=== PATIENT | male | born 1995 | race Caucasian/White ===

== ENCOUNTER → 2017-02-15 | Outpatient (CLI) | payer OTHER ==
[~2017-02-15] MED LIST: INSPMPNVLG; LISI-725 PO
[2017-02-15 12:57] LABS: ALT/SGPT 19 U/L (12-78); BLOOD UREA NITROGEN 8 mg/dl (7-18); BUN/CREATININE RATIO 9.5 (10-20); CARBON DIOXIDE 26 mmol/L (21-32); CHLORIDE 103 mmol/L (98-107); CHOLESTEROL 148 mg/dl (0-200); CREATININE 0.83 mg/dl (0.60-1.40); GLUCOSE 159 mg/dl (70-99); POTASSIUM 3.5 mmol/L (3.5-5.1); SODIUM 141 mmol/L (136-145); TRIGLYCERIDES 90 mg/dl (0-150); VERY LOW DENSITY LIPOPROT CALC 18 mg/dl
[2017-02-15 13:07] LABS: ALB/GLOB RATIO 1.1 (0.9-2); ALKALINE PHOSPHATASE 65 U/L (45-117); AST/SGOT 12 U/L (15-37); CHOLESTEROL/HDL RATIO 2.5; HDL CHOLESTEROL 59 mg/dl; LDL CHOLESTEROL CALCULATED 71 mg/dl
[2017-02-15 13:16] LABS: ESTIMATED AVERAGE GLUCOSE 269 mg/dl; HA1C FLAG Normal (Normal)
[2017-02-15 13:34] LABS: RATIO 733.3 mcg/mg (0-30.0)
== END | disposition home or self-care (01) ==
LOC: C.LABBFT 09:56
PROVIDERS: ATTEND Internal Medicine Endocrinology, Diabetes & Metabolism
DX: R80.9 Proteinuria, unspecified (principal); E10.21 Type 1 diabetes mellitus with diabetic nephropathy

== ENCOUNTER 2017-05-05 22:10 | Emergency (ER) | payer OTHER ==
[~2017-05-05] VITALS: Ht 179.1 cm; Wt 70.0 kg
[2017-05-05 22:12] VITALS: Ht 179.1 cm; Wt 70.0 kg
[2017-05-05] MEDS ORDERED: SODIUM CHLORIDE 0.9% 1000ML 2,000 ML IV STA (22:23)
[2017-05-05] MEDS ORDERED: KETOROLAC TROMETHAMINE 30 MG/ML VIAL IV STA (22:23)
--- NOTE | 2017-05-05 23:03 | DIAGNOSTIC IMAGING REPORT ---
CHEST ONE VIEW PORTABLE CLINICAL HISTORY: Sepsis. COMPARISON STUDY: Chest radiograph November 05, 2015. FINDINGS: Lung volumes are normal. There is no pneumothorax or pleural effusion. There is no consolidation. Cardiac size is normal. Mediastinal contours are normal. Pulmonary vascularity is normal. IMPRESSION: No acute cardiopulmonary findings. Electronically signed by: Blayne Gabriel M.D. 05/05/2017 11:02 PM Dictated Date/Time: 05/05/2017 11:01 PM
[2017-05-05 23:09] LABS: MANUAL MICROSCOPIC REQUIRED? NO; REVIEW REQ? NO; URINE APPEARANCE CLEAR (CLEAR); URINE COLOR DK YELLOW; URINE NITRITE NEG (NEG); URINE PH 5.5 (4.5-7.5); URINE SPECIFIC GRAVITY 1.033 (1.000-1.030); UROBILINOGEN NEG (NEG); ZZUR CULT IF INDIC CLEAN CATCH NO
[2017-05-05 23:10] LABS: URINE BILIRUBIN NEG (NEG)
[2017-05-05 23:12] LABS: BASO % 0.3 %; BASO ABS # 0.03 K/uL (0-0.2); COMPLETE YES; HEMATOCRIT 45.8 % (42-52); IG% 0.3 %; LYMPH ABS # 1.28 K/uL (1.2-3.4); MEAN CELL VOLUME 84.7 fL (80-100); MEAN CORPUSCULAR HEMOGLOBIN 29.2 pg (25-34); MEAN CORPUSCULAR HGB CONC 34.5 g/dl (32-36); MONO % 12.1 %; NEUT % 76.3 %; PLATELET COUNT 224 K/uL (130-400); RED BLOOD COUNT 5.41 M/uL (4.7-6.1); WHITE BLOOD COUNT 11.61 K/uL (4.8-10.8)
[2017-05-05 23:14] LABS: INR 1.1 (0.9-1.1); PARTIAL THROMBOPLASTIN RATIO 1.3; PROTHROMBIN TIME (PATIENT) 11.4 SECONDS (9.0-12.0)
[2017-05-05 23:24] LABS: BUN/CREATININE RATIO 11.5 (10-20); CALCIUM 9.1 mg/dl (8.5-10.1); CREATININE 1.1 mg/dl (0.60-1.40); POTASSIUM 3.6 mmol/L (3.5-5.1)
[2017-05-05 23:27] LABS: ALB/GLOB RATIO 0.8 (0.9-2)
[2017-05-05 23:37] VITALS: TEMP 37
[2017-05-06 00:04] LABS: LYME DISEASE AB IGG NEG (NEG); LYME DISEASE AB IGM NEG (NEG)
[2017-05-06 00:50] VITALS: BP 109/61; PULSE 78; O2SAT 98
--- NOTE | 2017-05-06 02:23 | EMERGENCY ROOM VISIT NOTE ---
History First contact with patient: 22:19 Chief Complaint: FEVER Stated Complaint: FEVER SORE THROAT ACHEY,HEADACHE History of Present Illness The patient is a 21 year old male who presents to the Emergency Room with complaints of sore throat, fever, chills, myalgias, arthralgias, occasional cough for the past 2 days. Little sister is sick with btqe-lggj-hqz-mouth disease. Blood sugars have been running about 100. He is a type I diabetic. Patient denies chest pain, dyspnea, abdominal pain, vomiting, diarrhea, neck stiffness. He is tolerating by mouth fluids and food. Review of Systems See HPI for pertinent positives & negatives. A total of 10 systems reviewed and were otherwise negative. Past Medical/Surgical History Medical Problems: (1) Diabetes (2) DKA (diabetic ketoacidoses) Social History Smoking Status: Never Smoker Alcohol Use: none Drug Use: none Occupation Status: employed Current/Historical Medications Scheduled Insulin Aspart (novoLOG INSULIN PUMP ), 33 UNITS N/A UD Lisinopril (Zestril), 20 MG PO DAILY Allergies Coded Allergies: No Known Allergies (Verified , 05/05/17) Physical Exam Vital Signs Date Time Temp Pulse Resp B/P (MAP) Pulse Ox O2 Delivery O2 Flow Rate FiO2 05/06/17 00:50 78 20 109/61 98 05/05/17 23:37 37.0 89 16 110/79 97 Room Air 05/05/17 22:12 38.1 124 18 154/87 97 Room Air Pain Rating (0-10): 2.0 Physical Exam VITALS: Vitals are noted on the nurse's note and reviewed by myself. Vital signs febrile GENERAL: Pleasant male, in no acute distress, nondiaphoretic, well-developed well-nourished. SKIN: The skin was without rashes, erythema, edema, or bruising. There is no tenting of the skin. Capillary reflex less than 2 seconds. HEAD: Normocephalic atraumatic. EARS: External auditory canals clear, tympanic membranes pearly alejandra without erythema or effusion bilaterally. EYES: Pupils equal round and reactive to light and accommodation. Conjunctivae without injection, sclerae without icterus. Extraocular movements intact. NOSE: Patent, turbinates without inflammation or discharge. No sinus tenderness. MOUTH: Mucous membranes mildly dry. Pharynx without erythema or exudate. Uvula midline. Airway patent. Tongue does not deviate. NECK: Supple without nuchal rigidity. No lymphadenopathy. No thyromegaly. Cervical spine is nontender. No JVD. No meningeal signs HEART: Regular rate and rhythm without murmurs gallops or rubs. LUNGS: Clear to auscultation bilaterally without wheezes, rales or rhonchi. No dullness to percussion. No retractions or accessory muscle use. ABDOMEN: Positive bowel sounds x 4. Normal tympanic percussion. Soft, nontender, without masses or organomegaly. Yi sign negative. No guarding or rebound tenderness. No CVA tenderness MUSCULOSKELETAL: No muscle atrophy, erythema, or edema noted. NEURO: Patient was alert and oriented to person place and time. Normal sensation to light and sharp touch. No focal neurological deficits. Medical Decision & Procedures Laboratory Results 05/05/17 22:40 Red Blood Count 5.41, Mean Corpuscular Volume 84.7, Mean Corpuscular Hemoglobin 29.2, Mean Corpuscular Hemoglobin Concent 34.5, Mean Platelet Volume 11.0, Neutrophils (%) (Auto) 76.3, Lymphocytes (%) (Auto) 11.0, Monocytes (%) (Auto) 12.1, Eosinophils (%) (Auto) 0.0, Basophils (%) (Auto) 0.3, Neutrophils # (Auto ) 8.85, Lymphocytes # (Auto) 1.28, Monocytes # (Auto) 1.41, Eosinophils # (Auto ) 0.00, Basophils # (Auto) 0.03 05/05/17 22:40 Test 05/05/17 22:40 05/05/17 22:55 White Blood Count 11.61 K/uL (4.8-10.8) Red Blood Count 5.41 M/uL (4.7-6.1) Hemoglobin 15.8 g/dL (14.0-18.0) Hematocrit 45.8 % (42-52) Mean Corpuscular Volume 84.7 fL (80-100) Mean Corpuscular Hemoglobin 29.2 pg (25-34) Mean Corpuscular Hemoglobin Concent 34.5 g/dl (32-36) Platelet Count 224 K/uL (130-400) Mean Platelet Volume 11.0 fL (7.4-10.4) Neutrophils (%) (Auto) 76.3 % Lymphocytes (%) (Auto) 11.0 % Monocytes (%) (Auto) 12.1 % Eosinophils (%) (Auto) 0.0 % Basophils (%) (Auto) 0.3 % Neutrophils # (Auto) 8.85 K/uL (1.4-6.5) Lymphocytes # (Auto) 1.28 K/uL (1.2-3.4) Monocytes # (Auto) 1.41 K/uL (0.11-0.59) Eosinophils # (Auto) 0.00 K/uL (0-0.5) Basophils # (Auto) 0.03 K/uL (0-0.2) RDW Standard Deviation 37.6 fL (36.4-46.3) RDW Coefficient of Variation 12.3 % (11.5-14.5) Immature Granulocyte % (Auto) 0.3 % Immature Granulocyte # (Auto) 0.04 K/uL (0.00-0.02) Prothrombin Time 11.4 SECONDS (9.0-12.0) Prothromb Time International Ratio 1.1 (0.9-1.1) Activated Partial Thromboplast Time 35.0 SECONDS (21.0-31.0) Partial Thromboplastin Ratio 1.3 Anion Gap 10.0 mmol/L (3-11) Est Creatinine Clear Calc Drug Dose 104.3 ml/min Estimated GFR () 109.9 Estimated GFR (Non- 94.8 BUN/Creatinine Ratio 11.5 (10-20) Calcium Level 9.1 mg/dl (8.5-10.1) Total Bilirubin 0.6 mg/dl (0.2-1) Aspartate Amino Transf (AST/SGOT) 12 U/L (15-37) Alanine Aminotransferase (ALT/SGPT) 15 U/L (12-78) Alkaline Phosphatase 69 U/L (45-117) Total Protein 8.0 gm/dl (6.4-8.2) Albumin 3.6 gm/dl (3.4-5.0) Globulin 4.4 gm/dl (2.5-4.0) Albumin/Globulin Ratio 0.8 (0.9-2) Lyme Disease IgG Antibody NEG (NEG) Lyme Disease IgM Antibody NEG (NEG) Urine Color DK YELLOW Urine Appearance CLEAR (CLEAR) Urine pH 5.5 (4.5-7.5) Urine Specific [place] 1.033 (1.000-1.030) Urine Protein 3+ (NEG) Urine Glucose (UA) 1+ (NEG) Urine Ketones 3+ (NEG) Urine Occult Blood 1+ (NEG) Urine Nitrite NEG (NEG) Urine Bilirubin NEG (NEG) Urine Urobilinogen NEG (NEG) Urine Leukocyte Esterase NEG (NEG) Urine WBC (Auto) 1-5 /hpf (0-5) Urine RBC (Auto) 5-10 /hpf (0-4) Urine Hyaline Casts (Auto) 10-30 /lpf (0-5) Urine Epithelial Cells (Auto) 10-20 /lpf (0-5) Urine Bacteria (Auto) NEG (NEG) Medications Administered Medications (Trade) Dose Ordered Sig/Varinder Route Start Time Stop Time Status Last Admin Dose Admin Sodium Chloride 2,000 ml @ 999 mls/hr Q2H1M STAT IV 05/05/17 22:23 05/06/17 00:23 DC 05/05/17 22:54 999 MLS/HR Ketorolac Tromethamine (Toradol Inj) 30 mg NOW STAT IV 05/05/17 22:23 05/05/17 22:26 DC 05/05/17 22:54 30 MG ED Course Prior records/ancillary studies reviewed. Triage Nursing notes reviewed. Additional history obtained from family The patient's history was concerning for fever. Differential diagnosis: Etiologies such as viral syndrome, otitis, pharyngitis, pneumonia, influenza, meningitis, urinary tract infection, sepsis, bacteremia, as well as others were entertained. Physical examination: Patient is alert, interactive and tolerating fluids ER treatment provided: IV fluids, Toradol On reassessment the patient felt better. Diagnostics interpreted by me: The labs revealed hyperglycemia without DKA. Negative strep test. Negative Lyme's Imaging studies: CHEST ONE VIEW PORTABLE CLINICAL HISTORY: Sepsis. COMPARISON STUDY: Chest radiograph November 05, 2015. FINDINGS: Lung volumes are normal. There is no pneumothorax or pleural effusion. There is no consolidation. Cardiac size is normal. Mediastinal contours are normal. Pulmonary vascularity is normal. IMPRESSION: No acute cardiopulmonary findings. Electronically signed by: Blayne Gabriel M.D. This appears to be consistent with fever and sore throat most likely viral in etiology. Patient no signs of airway compromise. He is well-appearing. Urine culture was placed for mild hematuria. He was asymptomatic. Patient felt much better after being hydrated as above. No signs of meningitis. He did not have acute abdomen on exam. He is advised take all medicines as directed and to follow-up family care in a few days or here in the ER sooner for high fevers, lethargy, neck stiffness, worsening signs or symptoms or as needed. By the evaluation outlined above emergent etiologies such as otitis, pharyngitis, pneumonia, meningitis, urinary tract infection, sepsis, bacteremia, as well as others were deemed relatively unlikely. The pt informed about the findings as listed above. All questions were answered and pleased with the treatment. Return instructions were outlined and the patient was discharged in stable condition. Case reviewed with my attending Referral: The patient was referred back to their primary care physician for follow-up in 2 to 3 days for a recheck of the current condition. Medical Decision As above Impression Primary Impression: Fever Additional Impressions: Pharyngitis Dehydration Departure Information Dispostion Home / Self-Care Condition GOOD Forms HOME CARE DOCUMENTATION FORM, Work Instructions, Return To Work: 3 days IMPORTANT VISIT INFORMATION Patient Instructions Fever - [facility], Sore Throat - [facility], My [facility] Additional Instructions Acetaminophen(Tylenol) may be used for fever or pain. Use 1000mg every six hours as needed. Avoid using more than 4000mg in a 24 hour period. (AND/OR) Ibuprofen(Motrin, Advil) may be used for fever or pain. Use 600mg every six hours as needed. Take with food. Avoid using more than 2400mg in a 24 hour period. Do not use 2400mg per day for more than three consecutive days without physician direction. Prolonged inappropriate use can lead to stomach upset or ulcers. Afrin nasal spray: 2-3 sprays to each nostril twice daily as needed for congestion. Do not use for more than 3-4 days because it can lead to worsening rebound congestion. Pseudoephedrine(Sudaphed): 30-60mg every 6 hours as needed for nasal congestion. Do not take this with other stimulant products or supplements. Rest and drink plenty of fluids. Controlling your fever with Tylenol and Ibuprofen as above will make you feel better. Wash your hands after nose blowing, sneezing, or coughing. Most germs are spread through contact, therefore improper hygiene may result in your close contacts and loved ones becoming ill just like you. Continue current medications. Return to the ER for severe headache, neck stiffness, chest pain, difficulty breathing, fevers, vomiting, worsening of your condition, or as needed. Follow up with your primary physician this week for a recheck of your current condition. Work Instructions Return To Work: 3 days Problem Qualifiers Primary Impression: Fever Fever type: unspecified Qualified Codes: R50.9 - Fever, unspecified Additional Impressions: Pharyngitis Pharyngitis/tonsillitis etiology: unspecified etiology Qualified Codes: J02.9 - Acute pharyngitis, unspecified
== END 2017-05-06 00:51 | disposition home or self-care (01) ==
LOC: C.EDB 22:10
DX: R50.9 Fever, unspecified (principal); J02.9 Acute pharyngitis, unspecified; E86.0 Dehydration; R51 Headache; E10.9 Type 1 diabetes mellitus without complications; Z79.899 Other long term (current) drug therapy

== ENCOUNTER → 2017-05-30 | Outpatient (CLI) | payer OTHER ==
[2017-05-30 15:42] LABS: ESTIMATED AVERAGE GLUCOSE 206 mg/dl; HA1C FLAG Normal (Normal)
== END | disposition home or self-care (01) ==
LOC: C.LAB1850 14:14
PROVIDERS: ATTEND Internal Medicine Endocrinology, Diabetes & Metabolism
DX: R53.83 Other fatigue (principal); R80.9 Proteinuria, unspecified; E03.9 Hypothyroidism, unspecified; E55.9 Vitamin D deficiency, unspecified; E10.21 Type 1 diabetes mellitus with diabetic nephropathy; E06.3 Autoimmune thyroiditis; E10.3299 Type 1 diabetes mellitus with mild nonproliferative diabetic retinopathy without macular edema, unspecified eye

== ENCOUNTER 2017-09-26 18:24 | Inpatient (IN) | payer OTHER ==
[~2017-09-26] VITALS: Ht 180.3 cm; Wt 66.7 kg
[2017-09-26] MEDS ORDERED: SODIUM CHLORIDE 0.9% 1000ML 1,000 ML IV STA ×2 (18:41)
--- NOTE | 2017-09-26 18:53 | EMERGENCY ROOM VISIT NOTE ---
History Report prepared by Henry: Gerson Chavira Under the Supervision of: Dr. Evangelista Watts M.D. First contact with patient: 18:38 Chief Complaint: DEHYDRATION Stated Complaint: DIABETIC/DEHYDRATION Nursing Triage Summary: Pt states he is a diabetic with an insulin pump. Pt states sx began about 0200. Has not been able to check BSG today because his girlfriend has his meter. Pt denies pain. History of Present Illness The patient is a 22 year old male with a past medical history of diabetes, DKA, and hypertension, who presents to the ED with a cc of constant dehydration beginning last night. Positive for nausea, vomiting, mild cough. Negative for a sore throat, abdominal pain, changes to his bowel movements, urinary problems, recent travel, sick contacts, and camping. Per mom, the patient has been throwing up all day and has not been able to drink fluids. The patient notes that he is diabetic but has not been able to check his blood sugar today. He reports that he has had DKA previously, with the last time being two years ago. The patient states that he has a short acting pump to correct his blood sugar levels. He notes that he uses chewing tobacco. Source of History: patient, parent Onset: last night Position: other (global) Quality: other (dehydration) Timing: constant Associated Symptoms: + cough (mild), + nausea, + vomiting, No sorethroat, No abdominal pain, No urinary symptoms Note: He denies any changes to his bowel movements Review of Systems See HPI for pertinent positives and negatives. A total of ten systems were reviewed and were otherwise negative. Past Medical & Surgical Medical Problems: (1) Diabetes (2) DKA (diabetic ketoacidoses) Family History No pertinent family history stated. Social History Smoking Status: Never Smoker Alcohol Use: none Drug Use: none Occupation Status: employed Current/Historical Medications Scheduled Insulin Aspart (novoLOG INSULIN PUMP ), 1 EA N/A UD Lisinopril (Zestril), 20 MG PO DAILY Allergies Coded Allergies: No Known Allergies (Verified , 05/05/17) Physical Exam Vital Signs Date Time Temp Pulse Resp B/P (MAP) Pulse Ox O2 Delivery O2 Flow Rate FiO2 09/26/17 20:23 36.9 121 18 97/51 98 Room Air 09/26/17 19:24 130 09/26/17 18:31 139 18 117/78 99 Room Air Physical Exam GENERAL: Awake, alert, well-appearing, NAD HENT: Normocephalic, atraumatic, dry MM EYES: Normal conjunctiva. Sclera non-icteric. NECK: Supple. No nuchal rigidity. FROM. RESPIRATORY: CTAB, no rhonchi, wheezing, crackles CARDIAC: tachy, RR, no MRG ABDOMEN: Soft, NTND, BS+, insulin pump insertion site lateral to RLQ, no erythema surrounding the site. MSK: No chest wall TTP, no LE edema, no CVA tenderness. NEURO: GCS 15, CN 2-12 intact, moves all 4s on command SKIN: No rash or jaundice noted. Medical Decision & Procedures ER Provider Diagnostic Interpretation: Radiology results as stated below per my review and radiologist interpretation: CHEST ONE VIEW PORTABLE FINDINGS: The bones soft tissues and hemidiaphragms are normal. The cardiomediastinal silhouette is normal. The lungs are clear. The pulmonary vasculature is normal. IMPRESSION: Negative chest. The above report was generated using voice recognition software. It may contain grammatical, syntax or spelling errors. Electronically signed by: Julito Kennedy M.D. 09/26/2017 7:04 PM Laboratory Results 09/26/17 19:20 Red Blood Count 5.13, Mean Corpuscular Volume 91.6, Mean Corpuscular Hemoglobin 30.0, Mean Corpuscular Hemoglobin Concent 32.8, Mean Platelet Volume 11.4 09/26/17 19:20 Test 09/26/17 19:20 09/26/17 20:30 09/26/17 20:57 White Blood Count 47.84 K/uL (4.8-10.8) Red Blood Count 5.13 M/uL (4.7-6.1) Hemoglobin 15.4 g/dL (14.0-18.0) Hematocrit 47.0 % (42-52) Mean Corpuscular Volume 91.6 fL (80-100) Mean Corpuscular Hemoglobin 30.0 pg (25-34) Mean Corpuscular Hemoglobin Concent 32.8 g/dl (32-36) Platelet Count 408 K/uL (130-400) Mean Platelet Volume 11.4 fL (7.4-10.4) RDW Standard Deviation 44.5 fL (36.4-46.3) RDW Coefficient of Variation 13.3 % (11.5-14.5) Neutrophils % (Manual) 84.1 % Lymphocytes % (Manual) 10.6 % Monocytes % (Manual) 3.5 % Basophils % (Manual) 0.9 % (0-2) Myelocytes % 0.9 % Neutrophils # (Manual) 40.23 K/uL (1.4-6.5) Total Absolute Neutrophils 40.23 K/uL (1.4-6.5) Lymphocytes # (Manual) 5.07 K/uL (1.2-3.4) Total Absolute Lymphocytes 5.07 K/uL (1.2-3.4) Monocytes # (Manual) 1.67 K/uL (0.11-0.59) Basophils # (Manual) 0.43 K/uL (0-0.2) Myelocytes # 0.43 K/uL (0-0) Toxic Granulation 1+ Platelet Estimate INCREASED Prothrombin Time 11.1 SECONDS (9.0-12.0) Prothromb Time International Ratio 1.0 (0.9-1.1) Activated Partial Thromboplast Time 30.4 SECONDS (21.0-31.0) Partial Thromboplastin Ratio 1.2 Anion Gap 29.0 mmol/L (3-11) Est Creatinine Clear Calc Drug Dose 48.0 ml/min Estimated GFR () 45.9 Estimated GFR (Non- 39.6 BUN/Creatinine Ratio 16.8 (10-20) Lactic Acid Level 4.5 mmol/L (0.4-2.0) Calcium Level 9.4 mg/dl (8.5-10.1) Total Bilirubin 0.6 mg/dl (0.2-1) Direct Bilirubin 0.1 mg/dl (0-0.2) Aspartate Amino Transf (AST/SGOT) 37 U/L (15-37) Alanine Aminotransferase (ALT/SGPT) 38 U/L (12-78) Alkaline Phosphatase 102 U/L (45-117) Total Protein 8.5 gm/dl (6.4-8.2) Albumin 4.2 gm/dl (3.4-5.0) Lipase 284 U/L (73-393) Beta-Hydroxybutyric Acid 113.16 mg/dL (0.2-2.81) Urine Color YELLOW Urine Appearance CLEAR (CLEAR) Urine pH 5.5 (4.5-7.5) Urine Specific [place] 1.020 (1.000-1.030) Urine Protein TRACE (NEG) Urine Glucose (UA) 3+ (NEG) Urine Ketones 3+ (NEG) Urine Occult Blood 1+ (NEG) Urine Nitrite NEG (NEG) Urine Bilirubin NEG (NEG) Urine Urobilinogen NEG (NEG) Urine Leukocyte Esterase NEG (NEG) Urine RBC 0-4 /hpf (0-4) Urine WBC 0 /hpf (0-5) Urine Epithelial Cells 5-10 /lpf (0-5) Urine Bacteria NEG (NEG) Venous Blood pH 7.12 (7.36-7.41) Venous Blood Partial Pressure CO2 29 mmHg (38.0-50.0) Venous Blood Partial Pressure O2 33 mmHg Venous Blood HCO3 9 mmol/L Venous Blood Oxygen Saturation < 60.0 % Venous Blood Base Excess -18.7 mEq/L Laboratory results reviewed by me Medications Administered Medications (Trade) Dose Ordered Sig/Varinder Route Start Time Stop Time Status Last Admin Dose Admin Sodium Chloride 1,000 ml @ 999 mls/hr Q1H1M STAT IV 09/26/17 18:41 09/26/17 19:41 DC 09/26/17 19:39 999 MLS/HR Sodium Chloride 1,000 ml @ 999 mls/hr Q1H1M STAT IV 09/26/17 18:41 09/26/17 19:41 DC 09/26/17 20:26 999 MLS/HR Vancomycin HCl 1000 mg/Sodium Chloride 270 ml @ 125 mls/hr NOW STAT IV 09/26/17 20:32 09/26/17 22:41 DC 09/26/17 21:18 125 MLS/HR Piperacillin Sod/ Tazobactam Sod (Zosyn Iv) 4.5 gm NOW STAT IV 09/26/17 20:32 09/26/17 20:33 DC 09/26/17 20:49 4.5 GM ECG Indication: nausea Rate (beats per minute): 132 Rhythm: sinus tachycardia Findings: other (Normal intervals, right axis deviation,) ED Course 1842: The patient was evaluated in room A10. A complete history and physical exam was performed. 2040: I reevaluated and updated the patient. He agrees on the treatment plan. 2044: Upon reexamination, the patient was stable. I discussed the test results and treatment plan with him. The patient will be evaluated for further management. Medical Decision The patient is a 22 year old male with a past medical history of diabetes, DKA, and hypertension who presents to the ED with a cc of constant dehydration beginning last night. Positive for nausea, vomiting, mild cough . Negative for a sore throat, abdominal pain, changes to his bowel movements, urinary problems, recent travel, sick contacts, and camping. Differential diagnoses include: gastritis, DKA, hyperglycemia, dehydration, pharyngitis, bronchitis, and pneumonia. Patient was seen and evaluated the bedside. Patient has complained of some nausea inability to tolerate by mouth with emesis. Patient describes as nonbloody nonbilious. Patient denies any recent travel, antibiotics, or food ingestions. Patient does state that his girlfriend did get a flu shot recently. Patient denies any other symptomatic complaints. He's had regular bowel movements. Patient hasn't had some decreased urine output but has urinated today. Patient denies any dysuria or abdominal pain. He has had no surgeries on the abdomen. Patient does state he has had a nonproductive cough. Denies any sore throat, fevers, or chills. Patient has been unable to check his sugars. Patient had blood work completed along with an EKG, chest x-ray, and urinalysis. Patient was given IV fluids given his tachycardia. Patient was reevaluated. Patient was feeling mildly improved. Patient does have an anion gap. Patient is hyperglycemic. Patient does have AK I. Patient has an elevated lactate. Patient's white count is greater than 40. Patient is a negative chest x-ray and a negative urinalysis. Patient has a negative abdominal exam. I do not believe he needs additional imaging at this time. I did discuss the patient with the admitting team. Patient was ordered an insulin drip and additional fluids. Patient's potassium was 5.8 EKG did show some peaked T waves however they are not diffuse and does not show any QRS or [place] prolongation. Patient was covered with broad-spectrum antibiotics given the concern for the white count. Patient does not have a fever. Hospitalist does not believe the patient requires intensive care at this time. Patient admitted to tele. Insulin gtt started. Medication Reconcilliation Current Medication List: was personally reviewed by me Blood Pressure Screening Patient's blood pressure: Normal blood pressure Blood pressure disposition: Did not require urgent referral Consults Time Called: 2041 Consulting Physician: Dr. Blackwell - Hospital[place], [facility] [place] Returned Call: 2043 Discussed the patient's case. The patient will be evaluated for further treatment and disposition. Impression Primary Impression: Dehydration Additional Impressions: DKA (diabetic ketoacidoses) Acute kidney injury Leukocytosis Hyperglycemia Hyperkalemia Acidosis Critical Care I have personally spent greater than 47 minutes of critical care time in the direct management of this patient. This includes bedside care, interpretation of diagnostic studies, and testing, discussion with consultants, patient, and family members, and other required patient management activities. This 47 minutes is in excess of all separately billable procedures. Scribe Attestation The scribe's documentation has been prepared under my direction and personally reviewed by me in its entirety. I confirm that the note above accurately reflects all work, treatment, procedures, and medical decision making performed by me. Departure Information Dispostion Being Evaluated By Hospitalist Referrals No Doctor, Assigned (PCP) Forms HOME CARE DOCUMENTATION FORM, IMPORTANT VISIT INFORMATION, WORK / SCHOOL INSTRUCTIONS Patient Instructions My [facility] Problem Qualifiers Additional Impressions: DKA (diabetic ketoacidoses) Diabetes mellitus type: type 1 Diabetes mellitus complication detail: without coma Qualified Codes: E10.10 - Type 1 diabetes mellitus with ketoacidosis without coma Leukocytosis Leukocytosis type: unspecified Qualified Codes: D72.829 - Elevated white blood cell count, unspecified
[2017-09-26] MEDS ORDERED: ONDANSETRON 8 MG/54 ML D5W IV ONE (19:00)
--- NOTE | 2017-09-26 19:06 | DIAGNOSTIC IMAGING REPORT ---
CHEST ONE VIEW PORTABLE CLINICAL HISTORY: Evaluate Fever/Sepsis COMPARISON STUDY: 05/05/2017 FINDINGS: The bones soft tissues and hemidiaphragms are normal. The cardiomediastinal silhouette is normal. The lungs are clear. The pulmonary vasculature is normal. IMPRESSION: Negative chest. The above report was generated using voice recognition software. It may contain grammatical, syntax or spelling errors. Electronically signed by: Julito Kennedy M.D. 09/26/2017 7:04 PM Dictated Date/Time: 09/26/2017 7:04 PM
[2017-09-26 19:57] LABS: PARTIAL THROMBOPLASTIN RATIO 1.2; PROTHROMBIN TIME (PATIENT) 11.1 SECONDS (9.0-12.0)
[2017-09-26 20:04] LABS: MEAN CELL VOLUME 91.6 fL (80-100); MEAN CORPUSCULAR HGB CONC 32.8 g/dl (32-36); MEAN PLATELET VOLUME 11.4 fL (7.4-10.4); RED BLOOD COUNT 5.13 M/uL (4.7-6.1); WHITE BLOOD COUNT 47.84 K/uL (4.8-10.8)
[2017-09-26] MEDS ORDERED: PIPERACILLIN/TAZOBACTAM 4.5 GM/100ML D5W IV STA (20:32)
[2017-09-26] MEDS ORDERED: VANCOMYCIN INJ 1,000 MG in SODIUM CHLORIDE 0.9% 250ML 250 ML IV STA (20:32)
[2017-09-26 20:33] LABS: BUN/CREATININE RATIO 16.8 (10-20); CALCIUM 9.4 mg/dl (8.5-10.1); CREATININE 2.25 mg/dl (0.60-1.40); POTASSIUM 5.8 mmol/L (3.5-5.1)
[2017-09-26] MEDS ORDERED: INSULIN IV INFUSION PROTOCOL STA ×2 (20:39→20:59)
[2017-09-26] MEDS ORDERED: DKA GOAL RANGE 150-250 mg/dl 1 EA ONE ×2 (20:45→21:00)
[2017-09-26] MEDS ORDERED: SEVERE STRESS LEVEL ONE ×2 (20:45→21:00)
[2017-09-26 20:53] LABS: MANUAL MICROSCOPIC REQUIRED? YES; URINE APPEARANCE CLEAR (CLEAR); URINE BILIRUBIN NEG (NEG); URINE COLOR YELLOW; URINE NITRITE NEG (NEG); URINE PH 5.5 (4.5-7.5); UROBILINOGEN NEG (NEG)
[2017-09-26 20:54] LABS: REVIEW REQ? NO
[2017-09-26 20:59] LABS: URINE BACTERIA NEG (NEG); URINE RBC 0-4 /hpf (0-4); URINE WBC 0 /hpf (0-5)
[2017-09-26 21:00] LABS: PLATELET COUNT 408 K/uL (130-400)
[2017-09-26] MEDS ORDERED: GLUCAGON FOR INJ 1 MG VIAL SQ PRN (21:00)
[2017-09-26] MEDS ORDERED: POLYETHYLENE (MIRALAX) 17 GM PACK PO PRN (21:00)
[2017-09-26] MEDS: INSULIN ASPART 100 UNITS/ML 3 ML PEN SC SCH (21:00)
[2017-09-26] MEDS ORDERED: ONDANSETRON INJ 2 MG/ML 2 ML VIAL IV PRN (21:00)
[2017-09-26] MEDS ORDERED: ALUMINUM/MAGNESIUM/SIMETH (MAALOX MAX) 30 ML UDC PO PRN (21:00)
[2017-09-26] MEDS ORDERED: GLUCOSE 40% GEL 15 GM TUBE PO PRN (21:00)
[2017-09-26] MEDS ORDERED: ACETAMINOPHEN 325 MG TAB PO PRN (21:00)
[2017-09-26] MEDS ORDERED: INSULIN ASPART 100 UNITS/ML 3 ML PEN SC SCH (21:00)
[2017-09-26] MEDS ORDERED: GLUCOSE 10 TABS/TUBE PO PRN (21:00)
[2017-09-26] MEDS ORDERED: PENDING NSS+20mEq KCL IVF SCH (21:00)
[2017-09-26] MEDS ORDERED: DEXTROSE 50% 50 ML SYR IV PRN (21:00)
[2017-09-26] MEDS ORDERED: MAGNESIUM HYDROXIDE SUSP 30 ML UDC PO PRN (21:00)
[2017-09-26 21:01] LABS: BASO ABS # 0.43 K/uL (0-0.2); BASOPHIL % 0.9 % (0-2); COMPLETE YES; LYMPH ABS # 5.07 K/uL (1.2-3.4); LYMPHOCYTE % 10.6 %; MYELOCYTE % 0.9 %; NEUTROPHILS % 84.1 %; PLT ESTIMATE INCREASED
[2017-09-26] MEDS ORDERED: INSULIN HUMAN REGULAR IV BOLUS 2.5 UNIT in SYRINGE 0 ML IV ONE (21:15)
[2017-09-26] MEDS ORDERED: INSULIN REGULAR 250 UNITS in SODIUM CHLORIDE 0.9% 250ML 250 ML IV SCH (21:15)
--- NOTE | 2017-09-26 21:16 | History and Physical ---
History & Physical Date & Time of Service: Sep 26, 2017 at 21:11 Chief Complaint: Diabetic/Dehydration Primary Care Physician: Susan Gabriel M.D. History of Present Illness Source: patient, family Jr is a 22 yo M with type 1 diabetes, with an insulin pump, who presents with elevated blood sugar and severe nausea since this morning. 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 He started vomiting about every 30 minutes and could not keep anything down. He denies any blood to the vomit. He denies eating anything unusual the night before. He did not have any abdominal pain or diarrhea at this time. He reports he did not check his blood sugar today but in general did not feel right. He was brought to the ED and found to have a BSG of 794, WBCC of 47 ( primarily neutrophils), and an anion gap of 28 with bicarb of 10. He received IV fluids and currently feels somewhat better. He was able to keep down a small bottle of Powerade and some water. He still denies further pain. 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 He was diagnosed with type 1 DM when he was a kid, but did not take his insulin treatment regularly for the last few years. This past February he was found to have diabetic retinopathy, his kidneys were also effected, and his A1c was 11.0%. He started to be more compliant with his insulin and his A1c came down to 8%. He reports he thinks he may have put the pump in the wrong place on his body and that's why he is sick. He also reports his pump is out of warranty and he needs a new one. He last had an episode of DKA in 2014. Past Medical/Surgical History PMHx: Type 1 DM, on insulin pump PSHx: None Family History No FHx of diabetes, heart disease, or stroke. Social History Smoking Status: Never Smoker Drug Use: none Housing status: lives with family Occupational Status: employed Multi-Drug Resistant Organisms History of MDRO: Yes Type of MDRO: MRSA Allergies Coded Allergies: No Known Allergies (Verified , 05/05/17) Home Medications Scheduled Insulin Aspart (novoLOG INSULIN PUMP ), 1 EA N/A UD Lisinopril (Zestril), 20 MG PO DAILY Review of Systems See HPI for pertinent positives & negatives. A total of 10 systems reviewed and were otherwise negative. Physical Exam Vital Signs Date Time Temp Pulse Resp B/P (MAP) Pulse Ox O2 Delivery O2 Flow Rate FiO2 09/26/17 20:23 36.9 121 18 97/51 98 Room Air 09/26/17 19:24 130 09/26/17 18:31 139 18 117/78 99 Room Air General Appearance: WD/WN, no apparent distress, + thin Head: normocephalic, atraumatic Eyes: normal inspection, PERRL ENT: hearing grossly normal Neck: supple, no JVD Respiratory/Chest: lungs clear, normal breath sounds, no respiratory distress Cardiovascular: no murmur, normal peripheral pulses, + tachycardia Abdomen/GI: non tender, soft Back: no CVA tenderness, no muscle spasm, normal range of motion Extremities/Musculoskelatal: no calf tenderness, no pedal edema Neurologic/Psych: alert, normal mood/affect, normal reflexes, oriented x 3 Skin: no rash Diagnostics Laboratory Results Results Past 24 Hours Test 09/26/17 18:41 09/26/17 19:13 09/26/17 19:20 09/26/17 20:30 Range/Units Bedside Glucose > 600 70-99 mg/dl White Blood Count 47.84 4.8-10.8 K/uL Red Blood Count 5.13 4.7-6.1 M/uL Hemoglobin 15.4 14.0-18.0 g/dL Hematocrit 47.0 42-52 % Mean Corpuscular Volume 91.6 80-100 fL Mean Corpuscular Hemoglobin 30.0 25-34 pg Mean Corpuscular Hemoglobin Concent 32.8 32-36 g/dl Platelet Count 408 130-400 K/uL Mean Platelet Volume 11.4 7.4-10.4 fL RDW Standard Deviation 44.5 36.4-46.3 fL RDW Coefficient of Variation 13.3 11.5-14.5 % Neutrophils % (Manual) 84.1 % Lymphocytes % (Manual) 10.6 % Monocytes % (Manual) 3.5 % Basophils % (Manual) 0.9 0-2 % Myelocytes % 0.9 % Neutrophils # (Manual) 40.23 1.4-6.5 K/uL Total Absolute Neutrophils 40.23 1.4-6.5 K/uL Lymphocytes # (Manual) 5.07 1.2-3.4 K/uL Total Absolute Lymphocytes 5.07 1.2-3.4 K/uL Monocytes # (Manual) 1.67 0.11-0.59 K/uL Basophils # (Manual) 0.43 0-0.2 K/uL Myelocytes # 0.43 0-0 K/uL Platelet Estimate INCREASED Prothrombin Time 11.1 9.0-12.0 SECONDS Prothromb Time International Ratio 1.0 0.9-1.1 Activated Partial Thromboplast Time 30.4 21.0-31.0 SECONDS Partial Thromboplastin Ratio 1.2 Sodium Level 128 136-145 mmol/L Potassium Level 5.8 3.5-5.1 mmol/L Chloride Level 89 98-107 mmol/L Carbon Dioxide Level 10 21-32 mmol/L Anion Gap 29.0 3-11 mmol/L Blood Urea Nitrogen 38 7-18 mg/dl Creatinine 2.25 0.60-1.40 mg/dl Est Creatinine Clear Calc Drug Dose 48.0 ml/min Estimated GFR () 45.9 Estimated GFR (Non- 39.6 BUN/Creatinine Ratio 16.8 10-20 Random Glucose 794 70-99 mg/dl Lactic Acid Level 4.5 0.4-2.0 mmol/L Calcium Level 9.4 8.5-10.1 mg/dl Total Bilirubin 0.6 0.2-1 mg/dl Direct Bilirubin 0.1 0-0.2 mg/dl Aspartate Amino Transf (AST/SGOT) 37 15-37 U/L Alanine Aminotransferase (ALT/SGPT) 38 12-78 U/L Alkaline Phosphatase 102 45-117 U/L Total Protein 8.5 6.4-8.2 gm/dl Albumin 4.2 3.4-5.0 gm/dl Lipase 284 73-393 U/L Urine Color YELLOW Urine Appearance CLEAR CLEAR Urine pH 5.5 4.5-7.5 Urine Specific [place] 1.020 1.000-1.030 Urine Protein TRACE NEG Urine Glucose (UA) 3+ NEG Urine Ketones 3+ NEG Urine Occult Blood 1+ NEG Urine Nitrite NEG NEG Urine Bilirubin NEG NEG Urine Urobilinogen NEG NEG Urine Leukocyte Esterase NEG NEG Urine RBC 0-4 0-4 /hpf Urine WBC 0 0-5 /hpf Urine Epithelial Cells 5-10 0-5 /lpf Urine Bacteria NEG NEG Microbiology Results 09/26/17 Blood Culture, Received Pending 09/26/17 Blood Culture, Received Pending Diagnostic Radiology CHEST ONE VIEW PORTABLE CLINICAL HISTORY: Evaluate Fever/Sepsis COMPARISON STUDY: 05/05/2017 FINDINGS: The bones soft tissues and hemidiaphragms are normal. The cardiomediastinal silhouette is normal. The lungs are clear. The pulmonary vasculature is normal. IMPRESSION: Negative chest. EKG Sinus tachycardia, 130bpm, no ST elevation Impression Assessment and Plan 22 yo M, type 1 diabetic on insulin pump, who presents in DKA, likely precipitated by frequent vomiting earlier in the day. Now tolerating some PO liquids. Diabetic ketoacidosis Per protocol, will provide NSS for fluid replacement at 200cc/hour, which will include potassium after his K+ drops to less than 5.1 Insulin drip already started in the ED. We will discontinue his pump and continue on the drip. Continue PO liquids as tolerated. Please page me if he is hungry and wants to eat. VBG and Electrolyte monitoring q4h. His corrected sodium is 139. Nausea/Vomiting Zofran as needed. Can provide Compazine if needed. Dispo: Admitted to Tele VTE: SCDs, Lovenox SQ Code status: Full Resident Physician Supervision Note: I was present with Dr. Ann during the history and exam. I discussed the case with the resident and agree with the findings and plan as documented in the note. Any exceptions or clarifications are listed here: 22 y/o M Type 1 DM x 18 yrs - was at work and developed abdominal cramping, N/V which was intractable - denies fevers, diarrhea, dysuria, SOB or cough - Initial labs revealed a glu of ~ 750 and were consistent with DKA - WBC is also markedly elevated AAO x 3 S1,2 R CTAB NT, NDNo CCE P: Placed on DKA protocol - showing clin improvemnt at time of admission following IVF, Insulin, antiemetics Reg leukocytosis - will trend CBC - may need further workup if does not resolve although this is most likely reactive -related to both DKA and hemoconcentration Above discussed with pt and family Documented By: Sandip Blackwell VTE Prophylaxis VTE Risk Assessment Done? Y/N: Yes Risk Level: Moderate Resident Tracking Resident Involvement: Resident Care Provided Care Provided: Adult Hospital Medicine
[2017-09-26 21:17] LABS: TOXIC GRANULATION 1+
[2017-09-26 21:39] LABS: VEN BLOOD GAS BASE EXCESS -18.7 mEq/L; VENOUS BLOOD GAS PCO2 29 mmHg (38.0-50.0); VENOUS BLOOD GAS PO2 33 mmHg
[2017-09-26 21:48] LABS: BETA-HYDROXYBUTYRATE 113.16 mg/dL (0.2-2.81)
[2017-09-26] MEDS ORDERED: INSPMPNVLG (21:53)
[2017-09-26] MEDS ORDERED: LISI-725 PO (21:53)
[2017-09-26 21:57] LABS: VEN BLD GAS O2 SATURATION < 60.0 %
[2017-09-26] MEDS ORDERED: SODIUM CHLORIDE 0.9% 1000ML 1,000 ML IV SCH (22:18)
[2017-09-26 22:31] VITALS: BP 119/73; PULSE 128; TEMP 36.8; O2SAT 99; BMI 20.4
[2017-09-26 23:33] VITALS: BP 109/76; PULSE 129; TEMP 36.8; O2SAT 100
[2017-09-26 23:47] LABS: BETA-HYDROXYBUTYRATE 103.75 mg/dL (0.2-2.81)
[2017-09-27] VITALS (7 sets, daily range): BP systolic 92–115; BP diastolic 36–60; PULSE 98–121; TEMP 36.5–36.9; O2SAT 97–98; BMI 20.4
[2017-09-27 00:32] LABS: BLOOD UREA NITROGEN 36 mg/dl (7-18); CARBON DIOXIDE 10 mmol/L (21-32); CHLORIDE 99 mmol/L (98-107); SODIUM 133 mmol/L (136-145)
[2017-09-27 00:33] LABS: PHOSPHORUS 3.2 mg/dl (2.5-4.9)
[2017-09-27 00:36] LABS: GLUCOSE 553 mg/dl (70-99)
[2017-09-27] MEDS ORDERED: PNEUMOCOCCAL ADMINISTRATION CHARGE ONE (01:00)
[2017-09-27] MEDS ORDERED: PNEUMOCOCCAL POLYSACCHARIDES 25 MCG/0.5 ML VIAL/SYR IM. ONE (01:00)
[2017-09-27 01:35] LABS: BETA-HYDROXYBUTYRATE 91.69 mg/dL (0.2-2.81)
[2017-09-27 01:40] LABS: MAGNESIUM 2.5 mg/dl (1.8-2.4)
[2017-09-27 02:36] LABS: POTASSIUM 4.8 mmol/L (3.5-5.1)
[2017-09-27] MEDS ORDERED: NURSING VERBAL MED ORDER ONE ×3 (03:00→12:15)
[2017-09-27] MEDS: NSS + 20MEQ KCL 1000ML 1,000 ML IV SCH ×4 (03:33→23:22)
[2017-09-27 04:34] LABS: BUN/CREATININE RATIO 19.8 (10-20); CALCIUM 7.6 mg/dl (8.5-10.1); CREATININE 1.62 mg/dl (0.60-1.40); MAGNESIUM 2.3 mg/dl (1.8-2.4); PHOSPHORUS 2.9 mg/dl (2.5-4.9); POTASSIUM 4.7 mmol/L (3.5-5.1)
[2017-09-27 04:37] LABS: HEMATOCRIT 37.9 % (42-52); MEAN CELL VOLUME 85.7 fL (80-100); MEAN CORPUSCULAR HEMOGLOBIN 29.9 pg (25-34); MEAN CORPUSCULAR HGB CONC 34.8 g/dl (32-36); MEAN PLATELET VOLUME 10.3 fL (7.4-10.4); PLATELET COUNT 340 K/uL (130-400); RED BLOOD COUNT 4.42 M/uL (4.7-6.1); WHITE BLOOD COUNT 37.93 K/uL (4.8-10.8)
[2017-09-27 04:44] LABS: BETA-HYDROXYBUTYRATE 41.01 mg/dL (0.2-2.81)
[2017-09-27 05:06] LABS: BASO % 0.1 %; BASO ABS # 0.05 K/uL (0-0.2); COMPLETE YES; IG% 1.1 %; LYMPH % 13.4 %; LYMPH ABS # 5.08 K/uL (1.2-3.4); NEUT % 79.4 %; VACUOLIZATION 1+
[2017-09-27] MEDS: ENOXAPARIN 40 MG/0.4 ML SYR SQ SCH (07:43)
[2017-09-27] MEDS: INSULIN ASPART 100 UNITS/ML 3 ML PEN SC SCH ×2 (08:00→11:30)
[2017-09-27 08:35] LABS: VEN BLD GAS O2 SATURATION 88.9 %
[2017-09-27 08:42] LABS: INFLUENZA A PCR Neg for Influ A (NEG); INFLUENZA B PCR Neg for Influ B (NEG)
[2017-09-27 08:50] LABS: BUN/CREATININE RATIO 19.5 (10-20); CALCIUM 8.1 mg/dl (8.5-10.1); CREATININE 1.33 mg/dl (0.60-1.40); MAGNESIUM 2.4 mg/dl (1.8-2.4); PHOSPHORUS 2.7 mg/dl (2.5-4.9); POTASSIUM 4.5 mmol/L (3.5-5.1)
[2017-09-27] MEDS ORDERED: LISINOPRIL 20 MG TAB PO SCH (09:00)
[2017-09-27] MEDS ORDERED: SODIUM CHLORIDE 0.9% 1000ML 1,000 ML IV ONE (11:15)
[2017-09-27] MEDS ORDERED: PHARMACY GLYCEMIC MGMT CONSULT PRN (11:17)
--- NOTE | 2017-09-27 12:09 | Pharmacy Progress Note ---
Glycemic Control Intl Consult Date of Service Sep 27, 2017. Scope Glycemic Pharmacist consulted by Dr Rosa on 09/27/17 for glycemic control and to write orders per [facility] inpatient glycemic control protocol Objective Weight (Kilograms): 66.500 Accuchecks BSG (last 24hrs): Test 09/26/17 19:13 09/26/17 19:20 09/26/17 22:22 09/26/17 22:39 Bedside Glucose > 600 mg/dl (70-99) > 600 mg/dl (70-99) Random Glucose 794 mg/dl (70-99) 648 mg/dl (70-99) Test 09/26/17 23:37 09/26/17 23:55 09/27/17 00:30 09/27/17 01:27 Bedside Glucose > 600 mg/dl (70-99) 450 mg/dl (70-99) 430 mg/dl (70-99) Random Glucose 553 mg/dl (70-99) Test 09/27/17 02:31 09/27/17 03:28 09/27/17 04:08 09/27/17 04:25 Bedside Glucose 365 mg/dl (70-99) 309 mg/dl (70-99) 271 mg/dl (70-99) Random Glucose 335 mg/dl (70-99) Test 09/27/17 05:31 09/27/17 06:22 09/27/17 08:19 09/27/17 12:00 Bedside Glucose 243 mg/dl (70-99) 212 mg/dl (70-99) Random Glucose 192 mg/dl (70-99) Laboratory Data (last 24hrs) Test 09/26/17 19:20 09/26/17 23:55 09/27/17 01:00 09/27/17 04:08 Anion Gap 29.0 mmol/L 24.0 mmol/L 12.0 mmol/L BUN/Creatinine Ratio 16.8 18.0 19.8 Blood Urea Nitrogen 38 mg/dl 36 mg/dl 32 mg/dl Creatinine 2.25 mg/dl 2.00 mg/dl 1.62 mg/dl Potassium Level 5.8 mmol/L mmol/L 4.8 mmol/L 4.7 mmol/L Sodium Level 128 mmol/L 133 mmol/L 136 mmol/L White Blood Count 47.84 K/uL 37.93 K/uL Red Blood Count 5.13 M/uL 4.42 M/uL Hemoglobin 15.4 g/dL 13.2 g/dL Hematocrit 47.0 % 37.9 % Mean Corpuscular Volume 91.6 fL 85.7 fL Mean Corpuscular Hemoglobin 30.0 pg 29.9 pg Mean Corpuscular Hemoglobin Concent 32.8 g/dl 34.8 g/dl Platelet Count 408 K/uL 340 K/uL Mean Platelet Volume 11.4 fL 10.3 fL Neutrophils (%) (Auto) 79.4 % Lymphocytes (%) (Auto) 13.4 % Monocytes (%) (Auto) 6.0 % Eosinophils (%) (Auto) 0.0 % Basophils (%) (Auto) 0.1 % Neutrophils # (Auto) 30.07 K/uL Lymphocytes # (Auto) 5.08 K/uL Monocytes # (Auto) 2.29 K/uL Eosinophils # (Auto) 0.01 K/uL Basophils # (Auto) 0.05 K/uL Test 09/27/17 08:19 09/27/17 12:00 Anion Gap 12.0 mmol/L BUN/Creatinine Ratio 19.5 Blood Urea Nitrogen 26 mg/dl Creatinine 1.33 mg/dl Potassium Level 4.5 mmol/L Sodium Level 136 mmol/L HbA1c Item Value Date Time Hemoglobin A1c 8.8 % H 05/30/17 1419 Recent Pertinent Medications Outpatient Anti-diabetic Regimen: * Novolog pump (settings unknown) The patient is currently receiving: * Insulin drip per DKA protocol Risk Factors for Insulin Resistance: * Infection? Assessment & Plan ASSESSMENT: * 22 yo T1D male admitted with symptoms/lab values consistent with DKA * Insulin drip initiated per protocol last night and continues this AM * Most recent A1c in May 2017 indicative of decent glycemic control - much improved from A1c of >11 % * Updated A1c on order with AM labs * Spoke with MD/nurse/pt * Plan is to continue insulin drip till gap completely closes and BSGs between 100-200 mg/dL consistently * He believes his pump is functioning fine, but there was a problem with his site * Once pt tolerating diet and all criteria met - transition back to pump PLAN FOR INPATIENT GLYCEMIC CONTROL: * Continue IV insulin infusion per protocol * Change to Goal Range 100 - 200 mg/dl * Once anion gap closes and BSGs more stable - transition back to Novolog Pump with 2-3 hour overlap * Please note that the plan above was derived based on current level of insulin resistance and hospital stress. These recommendations are appropriate for inpatient admission only. Plan of care upon discharge will need to be reassessed to avoid potential outpatient hypo/hyperglycemia. Thank you.
[2017-09-27 12:45] LABS: BUN/CREATININE RATIO 20.4 (10-20); CALCIUM 7.3 mg/dl (8.5-10.1); CREATININE 1.33 mg/dl (0.60-1.40); MAGNESIUM 2.2 mg/dl (1.8-2.4); POTASSIUM 4.5 mmol/L (3.5-5.1)
[2017-09-27 12:46] LABS: PHOSPHORUS 1.9 mg/dl (2.5-4.9)
[2017-09-27] MEDS: NovoLOG INSULIN PUMP SCH ×3 (14:37→19:46)
[2017-09-27 16:34] LABS: BUN/CREATININE RATIO 20.7 (10-20); CALCIUM 7.6 mg/dl (8.5-10.1); CREATININE 1.34 mg/dl (0.60-1.40); MAGNESIUM 2.1 mg/dl (1.8-2.4); POTASSIUM 4.6 mmol/L (3.5-5.1)
[2017-09-27 16:35] LABS: PHOSPHORUS 1.9 mg/dl (2.5-4.9)
[2017-09-27 20:35] LABS: BUN/CREATININE RATIO 17.4 (10-20); CALCIUM 7.7 mg/dl (8.5-10.1); CREATININE 1.32 mg/dl (0.60-1.40); MAGNESIUM 2.1 mg/dl (1.8-2.4); POTASSIUM 4.3 mmol/L (3.5-5.1)
[2017-09-27 20:46] LABS: PHOSPHORUS 0.9 mg/dl (2.5-4.9)
--- NOTE | 2017-09-27 21:14 | Family Medicine Progress Note ---
Progress Note Date of Service Sep 27, 2017. Subjective Pt evaluation today including: conversation w/ patient, conversation w/ family , physical exam, chart review, lab review, review of studies Pain: No pain reported this morning Voiding: no voiding problems, no incontinence Patient is resting comfortably in bed this morning and states he is feeling significantly better. Denies any nausea, abdominal pain, headaches, or fever. Constitutional: No fever, No chills, No sweats Respiratory: No cough, No sputum, No wheezing Cardiovascular: No chest pain, No palpitations Abdomen: No pain, No nausea, No vomiting, No diarrhea, No constipation Male : No dysuria Neurologic: No weakness, No numbness/tingling Medications Current Inpatient Medications Medications (Trade) Dose Ordered Sig/Varinder Route Start Time Stop Time Status Last Admin Dose Admin Glucose (Glucose 40% Gel) UD PRN PO 09/26/17 21:00 10/26/17 20:59 Glucose (Glucose Chew Tab) 1 tabs UD PRN PO 09/26/17 21:00 10/26/17 20:59 Dextrose (Dextrose 50% 50ML Syringe) 50 ml UD PRN IV 09/26/17 21:00 10/26/17 20:59 Glucagon (Glucagon Inj) 1 mg UD PRN SQ 09/26/17 21:00 10/26/17 20:59 Acetaminophen (Tylenol Tab) 650 mg Q4H PRN PO 09/26/17 21:00 10/26/17 20:59 Al Hydrox/Mg Hydrox/Simethicone (Maalox Max Susp) 15 ml Q4H PRN PO 09/26/17 21:00 10/26/17 20:59 Magnesium Hydroxide (Milk Of Magnesia Susp) 30 ml Q12H PRN PO 09/26/17 21:00 10/26/17 20:59 Ondansetron HCl (Zofran Inj) 4 mg Q6H PRN IV 09/26/17 21:00 10/26/17 20:59 Polyethylene (Miralax Powder Packet) 17 gm DAILY PRN PO 09/26/17 21:00 10/26/17 20:59 Lisinopril (Zestril Tab) 20 mg DAILY PO 09/27/17 09:00 10/27/17 08:59 Future Hold 09/27/17 07:43 20 MG Enoxaparin Sodium (Lovenox Inj) 40 mg QAM SQ 09/27/17 09:00 10/27/17 08:59 09/27/17 07:43 40 MG Potassium Chloride/Sodium Chloride 1,000 ml @ 200 mls/hr Q5H IV 09/27/17 03:15 10/27/17 03:14 09/27/17 19:47 200 MLS/HR Miscellaneous Information (Consult Glycemic Management Pharmacy) 1 ea UD PRN N/A 09/27/17 11:17 10/27/17 11:16 Insulin Aspart (novoLOG INSULIN PUMP) 1 ea Q4 N/A 09/27/17 14:30 10/27/17 14:29 09/27/17 19:46 1 EA Objective Vital Signs Date Time Temp Pulse Resp B/P (MAP) Pulse Ox O2 Delivery O2 Flow Rate FiO2 09/27/17 19:44 36.6 113 16 108/55 (72) 97 Room Air 09/27/17 16:00 Room Air 09/27/17 15:25 36.7 119 16 104/44 (64) 98 Room Air 09/27/17 12:13 100/40 (60) 09/27/17 12:00 Room Air 09/27/17 11:55 36.8 109 18 92/36 (54) 98 Room Air 92/47 (62) 09/27/17 08:04 36.5 112 15 115/60 (78) 98 Room Air 09/27/17 08:00 Room Air 09/27/17 04:00 Room Air 09/27/17 03:32 36.8 121 18 95/53 (67) 97 Room Air 09/27/17 00:00 Room Air 09/26/17 23:33 36.8 129 22 109/76 (87) 100 Room Air 09/26/17 22:31 36.8 128 20 119/73 99 Room Air 09/26/17 22:03 118 18 102/56 98 Physical Exam General Appearance: WD/WN, no apparent distress Eyes: normal inspection, sclerae normal Respiratory/Chest: chest non-tender, lungs clear, normal breath sounds Cardiovascular: regular rate, rhythm, no edema, no gallop Abdomen: normal bowel sounds, non tender, soft Neurologic/Psychiatric: alert, normal mood/affect, oriented x 3 Laboratory Results Results Past 24 Hours Test 09/26/17 22:22 11/20/17 22:39 09/26/17 23:37 09/26/17 23:55 Range/Units Bedside Glucose > 600 > 600 70-99 mg/dl Random Glucose 648 553 70-99 mg/dl Beta-Hydroxybutyric Acid 103.75 91.69 0.2-2.81 mg/dL Venous Blood pH 7.24 7.36-7.41 Sodium Level 133 136-145 mmol/L Potassium Level 3.5-5.1 mmol/L Chloride Level 99 98-107 mmol/L Carbon Dioxide Level 10 21-32 mmol/L Anion Gap 24.0 3-11 mmol/L Blood Urea Nitrogen 36 7-18 mg/dl Creatinine 2.00 0.60-1.40 mg/dl Est Creatinine Clear Calc Drug Dose 54.0 ml/min Estimated GFR () 53.0 Estimated GFR (Non- 45.7 BUN/Creatinine Ratio 18.0 10-20 Calcium Level 8.0 8.5-10.1 mg/dl Phosphorus Level 3.2 2.5-4.9 mg/dl Magnesium Level 1.8-2.4 mg/dl Test 09/27/17 00:30 09/27/17 01:00 09/27/17 01:27 09/27/17 02:31 Range/Units Bedside Glucose 450 430 365 70-99 mg/dl Potassium Level 4.8 3.5-5.1 mmol/L Magnesium Level 2.5 1.8-2.4 mg/dl Test 09/27/17 03:28 09/27/17 04:08 09/27/17 04:25 09/27/17 05:31 Range/Units Bedside Glucose 309 271 243 70-99 mg/dl White Blood Count 37.93 4.8-10.8 K/uL Red Blood Count 4.42 4.7-6.1 M/uL Hemoglobin 13.2 14.0-18.0 g/dL Hematocrit 37.9 42-52 % Mean Corpuscular Volume 85.7 80-100 fL Mean Corpuscular Hemoglobin 29.9 25-34 pg Mean Corpuscular Hemoglobin Concent 34.8 32-36 g/dl Platelet Count 340 130-400 K/uL Mean Platelet Volume 10.3 7.4-10.4 fL Neutrophils (%) (Auto) 79.4 % Lymphocytes (%) (Auto) 13.4 % Monocytes (%) (Auto) 6.0 % Eosinophils (%) (Auto) 0.0 % Basophils (%) (Auto) 0.1 % Neutrophils # (Auto) 30.07 1.4-6.5 K/uL Lymphocytes # (Auto) 5.08 1.2-3.4 K/uL Monocytes # (Auto) 2.29 0.11-0.59 K/uL Eosinophils # (Auto) 0.01 0-0.5 K/uL Basophils # (Auto) 0.05 0-0.2 K/uL RDW Standard Deviation 40.6 36.4-46.3 fL RDW Coefficient of Variation 12.9 11.5-14.5 % Immature Granulocyte % (Auto) 1.1 % Immature Granulocyte # (Auto) 0.43 0.00-0.02 K/uL Toxic Vacuolation 1+ Venous Blood pH 7.33 7.36-7.41 Sodium Level 136 136-145 mmol/L Potassium Level 4.7 3.5-5.1 mmol/L Chloride Level 105 98-107 mmol/L Carbon Dioxide Level 19 21-32 mmol/L Anion Gap 12.0 3-11 mmol/L Blood Urea Nitrogen 32 7-18 mg/dl Creatinine 1.62 0.60-1.40 mg/dl Est Creatinine Clear Calc Drug Dose 66.7 ml/min Estimated GFR () 68.3 Estimated GFR (Non- 58.9 BUN/Creatinine Ratio 19.8 10-20 Random Glucose 335 70-99 mg/dl Calcium Level 7.6 8.5-10.1 mg/dl Phosphorus Level 2.9 2.5-4.9 mg/dl Magnesium Level 2.3 1.8-2.4 mg/dl Beta-Hydroxybutyric Acid 41.01 0.2-2.81 mg/dL Test 09/27/17 06:15 09/27/17 06:22 09/27/17 08:19 09/27/17 09:06 Range/Units Influenza Type A (RT-PCR) Neg for Influ A NEG Influenza Type A Antigen Neg for Influ A NEG Influenza Type B Antigen Neg for Influ B NEG Influenza Type B (RT-PCR) Neg for Influ B NEG Bedside Glucose 212 203 70-99 mg/dl Venous Blood pH 7.35 7.36-7.41 Venous Blood Partial Pressure CO2 37 38.0-50.0 mmHg Venous Blood Partial Pressure O2 58 mmHg Venous Blood HCO3 20 mmol/L Venous Blood Oxygen Saturation 88.9 % Venous Blood Base Excess -5.0 mEq/L Sodium Level 136 136-145 mmol/L Potassium Level 4.5 3.5-5.1 mmol/L Chloride Level 106 98-107 mmol/L Carbon Dioxide Level 18 21-32 mmol/L Anion Gap 12.0 3-11 mmol/L Blood Urea Nitrogen 26 7-18 mg/dl Creatinine 1.33 0.60-1.40 mg/dl Est Creatinine Clear Calc Drug Dose 81.3 ml/min Estimated GFR () 86.7 Estimated GFR (Non- 74.8 BUN/Creatinine Ratio 19.5 10-20 Random Glucose 192 70-99 mg/dl Calcium Level 8.1 8.5-10.1 mg/dl Phosphorus Level 2.7 2.5-4.9 mg/dl Magnesium Level 2.4 1.8-2.4 mg/dl Test 09/27/17 10:19 09/27/17 11:16 09/27/17 12:04 09/27/17 12:50 Range/Units Bedside Glucose 221 164 169 70-99 mg/dl Sodium Level 139 136-145 mmol/L Potassium Level 4.5 3.5-5.1 mmol/L Chloride Level 111 98-107 mmol/L Carbon Dioxide Level 17 21-32 mmol/L Anion Gap 11.0 3-11 mmol/L Blood Urea Nitrogen 27 7-18 mg/dl Creatinine 1.33 0.60-1.40 mg/dl Est Creatinine Clear Calc Drug Dose 81.3 ml/min Estimated GFR () 86.7 Estimated GFR (Non- 74.8 BUN/Creatinine Ratio 20.4 10-20 Random Glucose 180 70-99 mg/dl Calcium Level 7.3 8.5-10.1 mg/dl Phosphorus Level 1.9 2.5-4.9 mg/dl Magnesium Level 2.2 1.8-2.4 mg/dl Test 09/27/17 13:49 09/27/17 15:45 09/27/17 16:08 09/27/17 19:58 Range/Units Bedside Glucose 147 248 70-99 mg/dl Sodium Level 136 137 136-145 mmol/L Potassium Level 4.6 4.3 3.5-5.1 mmol/L Chloride Level 109 109 98-107 mmol/L Carbon Dioxide Level 16 20 21-32 mmol/L Anion Gap 12.0 8.0 3-11 mmol/L Blood Urea Nitrogen 28 23 7-18 mg/dl Creatinine 1.34 1.32 0.60-1.40 mg/dl Est Creatinine Clear Calc Drug Dose 80.6 81.9 ml/min Estimated GFR () 85.9 87.5 Estimated GFR (Non- 74.1 75.5 BUN/Creatinine Ratio 20.7 17.4 10-20 Random Glucose 255 234 70-99 mg/dl Calcium Level 7.6 7.7 8.5-10.1 mg/dl Phosphorus Level 1.9 0.9 2.5-4.9 mg/dl Magnesium Level 2.1 2.1 1.8-2.4 mg/dl Test 09/27/17 20:12 Range/Units Bedside Glucose 213 70-99 mg/dl Assessment and Plan Patient is a 22 year old male with a history of T1D with renal and retinal sequela that presented to the ED with vomiting and abdominal pain overnight secondary to DKA 1) Diabetic Ketoacidosis - 2/2 failure/ improper Novolog pump use as outpatient - Glucose levels significantly improve with IV insulin regimen - Anion gap closed (11) at approximately 12pm - Overlap of Insulin drip with Novolog Pump - Insulin drip per DKA protocol initiated in ED - Has had significantly improved A1C since working with Dr. Silva after previously having A1C > 11% with Renal and Retinal Pathology -Previously poorly controlled as outpatient with A1C > 11% -Discussed with patient that he was unable to check blood sugars yesterday because his girlfriend took his truck which had the glucometer - Case management met with patient this morning and will provide additional glucometer to patient - Will also need new pump due to warranty expiring, although the pump is still functional and will monitor blood sugars after restarting the pump to ensure adequate function 2) Hypotension - Called to bedside by nurse this morning and SBP < 90 - Held Losartan - Bolus 1L NS and increased fluids to 150 mls/hr - Continue to monitor 3) Nausea/ Vomiting - Zofran as needed Dispo: Admitted to Tele VTE: SCDs, Lovenox SQ Code status: Full Resident Tracking Resident Involvement: Resident Care Provided Care Provided: Adult Hospital Medicine
[2017-09-27] MEDS ORDERED: SODIUM PHOSPHATE 3 MMOL/1 ML INFUSION IV STA (21:28)
[2017-09-27] MEDS ORDERED: SODIUM PHOSPHATE INJ 30 MMOL in SODIUM CHLORIDE 0.9% 500ML 500 ML IV ONE (21:45)
[2017-09-28 03:35] VITALS: BP 124/71; PULSE 98; TEMP 36.5; O2SAT 97
[2017-09-28] MEDS: NovoLOG INSULIN PUMP SCH ×4 (04:00→11:54)
[2017-09-28] MEDS: NSS + 20MEQ KCL 1000ML 1,000 ML IV SCH ×2 (04:12→08:23)
[2017-09-28 06:22] LABS: BUN/CREATININE RATIO 15.1 (10-20); CREATININE 0.85 mg/dl (0.60-1.40); MAGNESIUM 1.9 mg/dl (1.8-2.4); PHOSPHORUS 2.6 mg/dl (2.5-4.9)
[2017-09-28 07:19] LABS: BASO % 0.3 %; BASO ABS # 0.03 K/uL (0-0.2); COMPLETE YES; EOS % 0.3 %; HEMATOCRIT 33.8 % (42-52); IG% 0.3 %; LYMPH % 21.3 %; LYMPH ABS # 2.44 K/uL (1.2-3.4); MEAN CELL VOLUME 85.1 fL (80-100); MEAN PLATELET VOLUME 9.8 fL (7.4-10.4); MONO % 5.1 %; NEUT % 72.7 %; PLATELET COUNT 185 K/uL (130-400); RED BLOOD COUNT 3.97 M/uL (4.7-6.1); WHITE BLOOD COUNT 11.48 K/uL (4.8-10.8)
[2017-09-28 07:43] VITALS: BP 126/72; PULSE 90; TEMP 36.8; O2SAT 98
[2017-09-28 08:15] LABS: ESTIMATED AVERAGE GLUCOSE 249 mg/dl; HA1C FLAG Normal (Normal)
[2017-09-28] MEDS: ENOXAPARIN 40 MG/0.4 ML SYR SQ SCH (08:24)
[2017-09-28 10:46] VITALS: Ht 180.3 cm; Wt 66.7 kg
[2017-09-28 11:40] VITALS: BP 118/60; PULSE 90; TEMP 36.8; O2SAT 97
--- NOTE | 2017-09-28 11:52 | Pharmacy Progress Note ---
Glycemic: Assessment & Plan Date of Service Sep 28, 2017. Assessment & Plan The patient is currently utilizing his own insulin pump. BSGs ranging 50 - 114 mg/dl over the past 24hrs. Please note that the patient recognized that he may have a low blood sugar this morning based upon deviation from his typical regimen. * Basal insulin: Novolog per pump setting * Correctional Insulin: Novolog Correction per scale ACHS Goal Range: Low 90 mg/dL - High 150 mg/dL Correction Factor: 50 mg/dL/unit * Prandial insulin: Per carb ratio of 1 unit per 8 grams CHO consumed PUMP SETTINGS: basal rate: 00: 1.3 units/hr 03: 1.7 units/hr 09: 1.3 units/hr 15: 1.2 units/hr 21: 1.5 units/hr BSGs continue to improve, no changes needed to inpatient regimen at this time. Pharmacy will continue to monitor patient daily and write orders per [facility] inpatient glycemic control protocol. Thanks. DISCHARGE RECOMMENDATIONS * The patient's HbA1C is remarkably elevated. Per Diabetes clinic, the patient recently attempted to make changes to reduce his HbA1C. Recommend continuing counseling with the patient about bolus with meals and dietary/exercise choices.
--- NOTE | 2017-09-28 14:00 | Discharge Instructions ---
Discharge Instructions Date of Service Sep 28, 2017. Admission Reason for Admission: DKA Discharge Discharge Diagnosis / Problem: Diabetic Ketoacidosis Discharge Goals Goal(s): Improve function, Improve disease control, Learn about illness, Therapeutic intervention Activity Recommendations Activity Limitations: as noted below Lifting Limitations: gradually increase as tolerated Exercise/Sports Limitations: gradually increase as tolerated Shower/Bathe: no limitations Driving or Machine Use: no limitations . Instructions / Follow-Up Instructions / Follow-Up You were seen in the hospital for an episode of Diabetic ketoacidosis secondary to your Diabetes. We were able to control your blood sugar with IV insulin and fluids. You also were found to have low blood pressure most secondary to dehydration. It is important to continue checking your blood sugars regularly as it appears your recent control has been not very good due to an elevated HbA1c > 10%. We are going to schedule a follow up appointment for next week (or as soon as possible considering the holidays) with Dr. Silva. You will be contacted with the date and time of that appointment. If you are not contacted in the next week please call our office. Please continue to monitory your blood sugar as well as possible to prevent any worsening of your condition and correction outcomes that accompany uncontrolled Diabetes including heart problems, strokes, vision problems, and many other consequences. You are to resume your normal home Insulin Pump and Blood Pressure medications. If you have any worsening symptoms on discharge that are similar to those that brought you into the hospital, fever, chills, chest pain, shortness of breath, vision changes, or any other concerns, please return to the hospital as soon as possible for evaluation. Current Hospital Diet Patient's current hospital diet: Diabetes Type 1 Diet Discharge Diet Recommended Diet: Diabetes Type 1 Diet Pending Studies Studies pending at discharge: no Laboratory Results Hemoglobin A1c Test 09/28/17 05:14 Range/Units Estimated Average Glucose 249 mg/dl Hemoglobin A1c 10.3 H 4.5-5.6 % Medical Emergencies . Who to Call and When: Medical Emergencies: If at any time you feel your situation is an emergency, please call 911 immediately. . Non-Emergent Contact Non-Emergency issues call your: Primary Care Provider . . "Provider Documentation" section prepared by Edenilson Rosa. . VTE Core Measure Inpt VTE Proph given/why not?: Enoxaparin (Lovenox)SQ
[2017-09-28 14:19] VITALS: BP 118/60; PULSE 90; TEMP 36.8; O2SAT 97
--- NOTE | 2017-09-28 22:45 | Discharge Summary ---
Discharge Summary Date of Service Sep 28, 2017. Discharge Summary Admission Date: Sep 26, 2017 at 21:07 Discharge Date: Sep 28, 2017 Discharge Disposition: Home Principal Diagnosis: Diabetic Ketoacidosis Medication Reconciliation Continued Medications: Insulin Aspart (novoLOG INSULIN PUMP ) 1 Ea Inj 1 EA N/A UD, EA DOSING MD DIRECTS Lisinopril (Zestril) 20 Mg Tab 20 MG PO DAILY, TAB Discharge Exam Review of Systems: Constitutional: + chills, No fever, No weakness, No fatigue Respiratory: No cough, No sputum, No wheezing, No shortness of breath Cardiovascular: No chest pain, No palpitations Abdomen: + vomiting, No pain, No nausea, No diarrhea, No constipation Genitourinary - Male: No urinary frequency Endocrine: No fatigue, No excessive urination Physical Exam: General Appearance: WD/WN, no apparent distress Eyes: normal inspection, sclerae normal Respiratory/Chest: chest non-tender, lungs clear, normal breath sounds, no respiratory distress, no accessory muscle use Cardiovascular: regular rate, rhythm, no edema, no gallop Abdomen / GI: normal bowel sounds, non tender, soft Extremities: normal inspection, no calf tenderness Neurologic/Psychiatric: alert, normal mood/affect, normal reflexes, oriented x 3 Hospital Course Patient is a 22 year old male with a history of T1D with renal and retinal sequela that presented to the ED with vomiting and abdominal pain overnight secondary to DKA 1) Diabetic Ketoacidosis - 2/2 failure/ improper Novolog pump use as outpatient - Patient initially presented with glucose level > 700 - Insulin drip per DKA protocol initiated in ED - Glucose levels significantly improved with IV insulin regimen - Anion gap closed (11) at approximately 12pm - Overlap of Insulin drip with Novolog Pump - Has had significantly improved A1C since working with Dr. Silva after previously having A1C > 11% with Renal and Retinal Pathology -Repeat HbA1c today found to be > 10% -Discussed with patient that he was unable to check blood sugars yesterday because his girlfriend took his truck which had the glucometer - Case management met with patient this morning and will provide additional glucometer to patient - Will also need new pump due to warranty expiring, although the pump is still functional and will monitor blood sugars after restarting the pump to ensure adequate function - Follow up with Dr. Silva on discharge 2) Hypotension - Called to bedside by nurse for SBP < 90 - Held Losartan - Bolus 1L NS and increased fluids to 150 mls/hr - Blood pressure improved and within normal limits on discharge - Losartan resumed on discharge 3) Nausea/ Vomiting - Zofran as needed Total Time Spent: Greater than 30 minutes This includes examination of the patient, discharge planning, medication reconciliation, and communication with other providers. Discharge Instructions Please refer to the electronic Patient Visit Report (Discharge Instructions) for additional information. Additional Copies To Susan Gabriel M.D.
== END 2017-09-28 14:45 | disposition home or self-care (01) | DRG 639 ==
LOC: C.EDB 18:26 → C.2E 21:07 → ENRESERV 21:17
PROVIDERS: ADMIT Internal Medicine; ATTEND Hospitalist
DX: E10.10 Type 1 diabetes mellitus with ketoacidosis without coma (principal); Z96.41 Presence of insulin pump (external) (internal); Z91.14 Patient's other noncompliance with medication regimen; R11.2 Nausea with vomiting, unspecified; I95.9 Hypotension, unspecified; Z86.14 Personal history of Methicillin resistant Staphylococcus aureus infection